=== PATIENT | female | born 1950 | race Two or more races ===

== ENCOUNTER 2024-08-08 14:15 | Emergency (ER) | payer MEDICAID ==
[~2024-08-08] VITALS: Ht 157.5 cm; Wt 54.4 kg
[2024-08-08 14:16] VITALS: BP 97/56; TEMP 98.2
[2024-08-08 14:58] VITALS: O2SAT 95
== END 2024-08-08 14:58 | disposition home or self-care (01) ==
LOC: ER 14:25
DX: H57.89 Other specified disorders of eye and adnexa (principal)
CPT/HCPCS: 99283; A6403

== ENCOUNTER 2024-10-01 02:55 | Inpatient (IN) | payer MEDICAID, OTHER ==
[~2024-10-01] VITALS: Ht 160 cm; Wt 52.2 kg
[2024-10-01] MEDS ORDERED: KETOROLAC TROMETHAMINE 15 MG/ML VIAL ONE ×2 (03:54→03:57)
[2024-10-01] MEDS: KETOROLAC TROMETHAMINE 15 MG/ML VIAL IM ONE (04:04)
[2024-10-01] MEDS ORDERED: MORPHINE SULFATE INJ 2 MG/ML DISP.SYRIN IV PRN (07:00)
[2024-10-01] MEDS ORDERED: ACETAMINOPHEN 325 MG TABLET PO PRN ×2 (07:00→12:00)
[2024-10-01] MEDS ORDERED: Z GUARD REMEDY 4 OZ OINT TP PRN (07:00)
[2024-10-01] MEDS ORDERED: ONDANSETRON HCL/PF 4 MG/2 ML VIAL IVP PRN (07:00)
[2024-10-01 08:00] VITALS: BP 123/84; TEMP 98.1; O2SAT 96
[2024-10-01] MEDS ORDERED: ALBU2.5V38 IH (08:44)
[2024-10-01] MEDS ORDERED: MAGN400T8 PO (08:44)
[2024-10-01] MEDS ORDERED: CHOL500062 PO (08:44)
[2024-10-01] MEDS ORDERED: MAGN400O6 PO (08:44)
[2024-10-01] MEDS ORDERED: LIDO1ADH82 TP (08:44)
[2024-10-01] MEDS ORDERED: VITA1CAP PO (08:44)
[2024-10-01] MEDS ORDERED: NA P133E RC (08:44)
[2024-10-01] MEDS ORDERED: CARB50DR EACHEYE (08:44)
[2024-10-01] MEDS ORDERED: BISA10SU11 RC (08:44)
[2024-10-01] MEDS ORDERED: ZINC220C6 PO (08:44)
[2024-10-01] MEDS ORDERED: ACET325T53 PO (08:44)
[2024-10-01] MEDS ORDERED: ACET-73 PO (08:44)
[2024-10-01] MEDS ORDERED: VITA40TA PO (08:44)
[2024-10-01] MEDS ORDERED: IBUP-1953 PO (08:44)
[2024-10-01] MEDS ORDERED: MULT-213 PO (08:44)
[2024-10-01] MEDS ORDERED: [UNRECOGNIZED DRUG - CODE] TP (08:44)
[2024-10-01 10:28] LABS: BASOPHILS # (AUTO) 0.1 K/uL (0.0-0.2); BASOPHILS % (AUTO) 1.5 % (0.0-2.0); EOSINOPHILS # (AUTO) 0.3 K/uL (0.0-0.7); EOSINOPHILS % (AUTO) 5.1 % (0.0-6.0); HEMATOCRIT 38 % (33-45); HEMOGLOBIN 12.9 g/dL (11.5-14.8); LYMPHOCYTES # (AUTO) 1.8 K/uL (0.8-4.8); LYMPHOCYTES % (AUTO) 28.9 % (20.0-44.0); MEAN CORPUSCULAR HEMOGLOBIN 30 PG (26.0-33.0); MEAN CORPUSCULAR HGB CONC 34 g/dl (31.0-36.0); MEAN CORPUSCULAR VOLUME 89 fL (82-100); MONOCYTES # (AUTO) 0.5 K/uL (0.1-1.30); MONOCYTES % (AUTO) 8.9 % (2.0-12.0); NEUTROPHILS # (AUTO) 3.4 K/uL (1.8-8.9); NEUTROPHILS % (AUTO) 55.6 % (43.0-81.0); PLATELET COUNT (AUTO) 251 K/uL (150-450); RED BLOOD CELL COUNT(AUTO) 4.31 MIL/uL (4.0-5.2); RED CELL DISTRIBUTION WIDTH 13.2 % (11.5-15.0); WHITE BLOOD COUNT (AUTO) 6.1 K/uL (4.3-11.0)
[2024-10-01 10:42] LABS: CALCIUM, SERUM 10.1 mg/dL (8.5-10.1); POTASSIUM 4.1 mmol/L (3.5-5.1)
[2024-10-01] MEDS ORDERED: BISACODYL SUPP (10 MG) 10 MG/SUPP.RECT SUPP.RECT RC PRN (12:00)
[2024-10-01] MEDS ORDERED: MAGNESIUM HYDROXIDE 30 ML UDC PO PRN (12:00)
[2024-10-01] MEDS ORDERED: LIDOCAINE 5% (PATCH) 1 EA PATCH TP PRN (12:00)
[2024-10-01] MEDS ORDERED: [UNRECOGNIZED DRUG - OTHER] TP PRN (12:00)
[2024-10-01] MEDS ORDERED: NA PHOS,M-B/NA PHOS,DI-BA 1 EA ENEMA RC PRN (12:00)
[2024-10-01] MEDS ORDERED: METHYL SALICYLATE TP PRN (12:00)
[2024-10-01] MEDS ORDERED: POLYVINYL ALCOHOL 15 ML BOTTLE EACHEYE PRN (12:00)
[2024-10-01] MEDS ORDERED: IBUPROFEN 400 MG TABLET PO PRN (12:00)
[2024-10-01] MEDS ORDERED: ACETAMINOPHEN ES 500 MG TABLET PO PRN (12:00)
[2024-10-01] MEDS ORDERED: MENTHOL TP PRN (12:00)
[2024-10-01] MEDS: METHOCARBAMOL (750MG) 750 MG TABLET PO SCH (18:00)
[2024-10-01] MEDS ORDERED: METHYL SALICYLATE/MENTHOL 28GM 28 GM TUBE TP PRN ×2 (19:30→22:00)
[2024-10-01 20:00] VITALS: BP 154/86; TEMP 98.1; O2SAT 99
[2024-10-01 20:24] VITALS: BP 154/86; TEMP 98.1; O2SAT 99
[2024-10-02 06:47] LABS: BASOPHILS # (AUTO) 0.1 K/uL (0.0-0.2); BASOPHILS % (AUTO) 1.4 % (0.0-2.0); EOSINOPHILS # (AUTO) 0.4 K/uL (0.0-0.7); EOSINOPHILS % (AUTO) 5.4 % (0.0-6.0); HEMATOCRIT 33 % (33-45); HEMOGLOBIN 11.8 g/dL (11.5-14.8); LYMPHOCYTES # (AUTO) 2.3 K/uL (0.8-4.8); LYMPHOCYTES % (AUTO) 33.5 % (20.0-44.0); MEAN CORPUSCULAR HEMOGLOBIN 31 PG (26.0-33.0); MEAN CORPUSCULAR HGB CONC 36 g/dl (31.0-36.0); MEAN CORPUSCULAR VOLUME 87 fL (82-100); MONOCYTES # (AUTO) 0.7 K/uL (0.1-1.30); MONOCYTES % (AUTO) 9.6 % (2.0-12.0); NEUTROPHILS # (AUTO) 3.5 K/uL (1.8-8.9); NEUTROPHILS % (AUTO) 50.1 % (43.0-81.0); PLATELET COUNT (AUTO) 226 K/uL (150-450); RED BLOOD CELL COUNT(AUTO) 3.75 MIL/uL (4.0-5.2); RED CELL DISTRIBUTION WIDTH 12.9 % (11.5-15.0); WHITE BLOOD COUNT (AUTO) 6.9 K/uL (4.3-11.0)
[2024-10-02 07:50] LABS: CALCIUM, SERUM 9.3 mg/dL (8.5-10.1); CREATININE 0.8 mg/dL (0.6-1.3); MAGNESIUM 2.1 mg/dL (1.8-2.4); PHOSPHORUS 4.4 mg/dL (2.5-4.9); POTASSIUM 4.1 mmol/L (3.5-5.1)
[2024-10-02 08:00] VITALS: BP 117/79; TEMP 98.2; O2SAT 96
[2024-10-02] MEDS ORDERED: Medication Not On Formulary EA (Vitamin K2 100 MCG) PO SCH (09:00)
[2024-10-02] MEDS: MAGNESIUM OXIDE 400 MG TABLET PO SCH (09:32)
[2024-10-02] MEDS: VITAMIN B COMP W-C 1 TAB TABLET PO SCH (09:32)
[2024-10-02] MEDS: MULTIVIT W/MINERALS 1 TAB TABLET PO SCH (09:32)
[2024-10-02] MEDS: ZINC SULFATE 220 MG CAPSULE PO SCH (09:32)
[2024-10-02] MEDS: CHOLECALCIFEROL 1,000 UNIT TABLET (VIT D3) PO SCH (09:32)
[2024-10-02] MEDS: ALBUTEROL FS 2.5 MG/3 ML VIAL.NEB NEB PRN (09:56)
[2024-10-02 09:57] VITALS: O2SAT 96
[2024-10-02 10:12] VITALS: O2SAT 99
[2024-10-02] MEDS: PREGABALIN 25 MG CAPSULE PO SCH (10:30)
[2024-10-02] MEDS ORDERED: PREG50CA PO (13:06)
[2024-10-02] MEDS ORDERED: METH-649 PO (13:06)
== END 2024-10-02 19:00 | DRG 347 ==
LOC: ER 02:58 → MED 06:50
PROVIDERS: ADMIT Nurse Practitioner Family; ATTEND Nurse Practitioner Family
DX: M48.061 Spinal stenosis, lumbar region without neurogenic claudication (principal); M80.08XA Age-related osteoporosis with current pathological fracture, vertebra(e), initial encounter for fracture; F17.200 Nicotine dependence, unspecified, uncomplicated; J44.9 Chronic obstructive pulmonary disease, unspecified; G89.29 Other chronic pain; J43.9 Emphysema, unspecified; M19.90 Unspecified osteoarthritis, unspecified site; R26.9 Unspecified abnormalities of gait and mobility; Z88.5 Allergy status to narcotic agent; Z88.6 Allergy status to analgesic agent; M85.88 Other specified disorders of bone density and structure, other site; M54.31 Sciatica, right side
CPT/HCPCS: 36415; 71045-TC; 71250-TC; 72131-TC; 80048-TC; 82306; 83735-TC; 84100-TC; 85025-TC; 87081-TC; 97110-TC; 97116-TC; 97530-TC; G0378; J1885